=== PATIENT | male | born 1980 | race African-American/Black ===

== ENCOUNTER 2018-10-20 10:15 | Emergency (ER) | payer MEDICAID, OTHER ==
[2018-10-20] MEDS ORDERED: Ondansetron ODT TAB* 4 MG PO ONE (10:36)
--- NOTE | 2018-10-20 10:36 | UC ---
Abdominal Pain Male HPI - HPI Summary HPI Summary: Onset of repeated episodes of vomiting at around 6 am, with 2 episodes of loose stool. Presents with complaint of pain from his lower chest to his mid abdomen, and cannot describe the pain. Was well last evening, ate sausage and had 1-2 beers, nothing suspicious of food borne illness. Awoke with sweating in the night. Denies any previous hx of similar illness, denies hx of sickle cell. Last used marijuana 2 days ago, denies any use of narcotics. - History of Current Complaint Chief Complaint: UCAbdominalPain Stated Complaint: VOMITTING,RESTLESS,CHILLS,NAUSEA Time Seen by Provider: 10/20/18 10:28 Hx Obtained From: Patient, Family/[place] Chief - here with his girlfriend. Onset/Duration: Sudden Onset, Lasting Hours - 5 Timing: Constant Severity Initially: Severe Severity Currently: Severe Pain Intensity: 10 Location: Diffuse Radiates: No Character: Cramping, Sharp Aggravating Factor(s): Movement Alleviating Factor(s): Nothing Associated Signs And Symptoms: Positive: Vomiting, Diarrhea. Negative: Fever, Chest Pain, Constipation, Blood in Stool, Urinary Symptoms - Allergies/Home Medications Allergies/Adverse Reactions: Allergies Allergy/AdvReac Type Severity Reaction Status Date / Time No Known Allergies Allergy Verified 10/20/18 10:20 Home Medications: Home Medications NK [No Home Medications Reported] 10/20/18 [History Confirmed 10/20/18] PMH/Surg Hx/FS Hx/Imm Hx Previously Healthy: Yes - Surgical History Surgical History: None - Family History Known Family History: Positive: Unknown - Social History Occupation: Employed Full-time - [employer] Lives: With Family Alcohol Use: Weekly Substance Use Type: None Smoking Status (MU): Never Smoked Tobacco Review of Systems All Other Systems Reviewed And Are Negative: Yes Constitutional: Positive: Negative Skin: Positive: Negative Eyes: Positive: Negative ENT: Positive: Negative Respiratory: Negative: Shortness Of Breath, Cough Cardiovascular: Negative: Chest Pain Gastrointestinal: Positive: Abdominal Pain, Vomiting, Diarrhea, Nausea Neurovascular: Positive: Negative Musculoskeletal: Positive: Negative. Negative: Arthralgia Neurological: Negative: Headache, Weakness Psychological: Positive: Anxious Physical Exam Triage Information Reviewed: Yes Completion Of Physical Exam Limited Due To: Patient is uncooperative with exam - Often warding off evaluation with his hands, has difficulty lying flat for evaluation. Appearance: Well-Nourished, Ill-Appearing, Pain Distress - moderate. Vital Signs: Initial Vital Signs Temp 96.2 F 10/20/18 10:21 Pulse 60 10/20/18 10:21 Resp 20 10/20/18 10:21 BP 135/76 10/20/18 10:21 Pulse Ox 100 10/20/18 10:21 Eyes: Positive: Conjunctiva Clear ENT: Positive: Pharynx normal Neck: Positive: Supple, Nontender, No Lymphadenopathy Respiratory: Positive: Lungs clear, Normal breath sounds Cardiovascular: Positive: RRR, No Murmur Abdomen Description: Positive: Soft, Guarding - throughouth. Negative: CVA Tenderness (R), CVA Tenderness (L), Distended, Hepatomegaly, McBurney's Point Tenderness, Peritoneal Signs Bowel Sounds: Positive: Present, Other: - Initially bowel sounds subdued, improved after 15 to 30 minutes. Musculoskeletal: Positive: Strength Intact, ROM Intact Neurological: Positive: Alert, Muscle Tone Normal Psychological Exam: Other - Poor eye contact, difficulty engaging his cooperation and he gives limited historical information. Skin Exam: Normal Diagnostics - EKG Cardiac Rate: NL Cardiac Rhythm: Sinus: Normal Ectopy: None ST Segment: Non-Specific EKG Comparison: Other - first degree av block Re-Evaluation - Re-Evaluation First Eval Re-Evaluation Time: 12:40 - no decrease in pain with toradol Change: Unchanged Second Eval Re-Evaluation Time: 13:20 - complaint of flutterring in chest. EKG with sinus rhythm. Change: Unchanged Comment: Advised transfer to hospital, declined ambulance, signed out AMA Abd Pain Male Course/Dx - Course Course Of Treatment: Given iv fluids, zofran with relief of nausea, toradol followed by morphine. CT of the abdomen without contrast is negative. - Differential Dx/Clinical Impression Differential Diagnosis/HQI/PQRI: Appendicitis, Pancreatitis, Renal Colic, Other - gastroenteritis. Provider Diagnosis: Abdominal pain, Palpitations Discharge - Sign-Out/Discharge Documenting (check all that apply): Patient Departure All imaging exams completed and their final reports reviewed: Yes - Discharge Plan Condition: Guarded Disposition: AGAINST MEDICAL ADVICE Patient Education Materials: Acute Abdominal Pain (ED) Referrals: No Primary Care Phys,NOPCP [Primary Care Provider] - Additional Instructions: You have declined ambulance transfer. Please proceed directly to the emergency room for evaluation. - Billing Disposition and Condition Condition: GUARDED Disposition: Against Medical Advice
[2018-10-20] MEDS ORDERED: NS 0.9% 1000 ML** 1,000 ML IV ONE (10:37)
[2018-10-20] MEDS ORDERED: Ketorolac INJ* 30 MG/ML 1 ML VIAL IV ONE (11:39)
[2018-10-20] MEDS ORDERED: Morphine PF AMP (1 MG/ML)* 10 MG/10 ML AMP IV ONE (12:11)
[2018-10-20] MEDS ORDERED: Morphine 10 MG/ML VIAL (1 ml) IV ONE (12:21)
[2018-10-20] MEDS ORDERED: NS 0.9% 500 ML* 500 ML IV ONE (12:35)
[2018-10-20 13:22] VITALS: BP 124/89
== END 2018-10-20 13:40 | disposition left against medical advice (07) ==
LOC: UCCORT 10:15
DX: R10.9 Unspecified abdominal pain (principal); R00.2 Palpitations
CPT/HCPCS: 74176; 93005; 96361; 96374; 96375; 99212; A9270-GY; G0463; J1885; J2270; J2274

== ENCOUNTER 2019-02-01 13:28 | Emergency (ER) | payer MEDICAID, OTHER ==
--- NOTE | 2019-02-01 14:03 | ED ---
Upper Extremity Pain - HPI Summary HPI Summary: Patient is a 38 y/o M presenting to the ED for a chief complaint of right hand pain and swelling. Patient states he injured the right hand a few weeks ago while boxing. He took ibuprofen with some relief to the swelling and applied ice to the right hand. He denies any aggravating factors. Patient admits some decreased ROM of the right hand. He denies having an x-ray of the hand. Patient denies any other pain, fever, or headache. Patient denies any PMHx, PSHx, or medications. Patient admits marijuana use, but denies tobacco or alcohol use. Medications reviewed. Allergies noted. - History of Current Complaint Chief Complaint: EDExtremityUpper Stated Complaint: SWOLLEN RT HAND PER PT Time Seen by Provider: 02/01/19 13:55 Hx Obtained From: Patient Mechanism Of Injury: Direct Blow Onset/Duration: Started Weeks Ago, Traumatic, Still Present Timing: Constant, Lasting Weeks Severity Initially: Moderate Severity Currently: Moderate Pain Location: Hand - Right Aggravating Factor(s): Nothing Alleviating Factor(s): OTC Meds - Ibuprofen Associated Signs & Symptoms: Positive: Swelling - Right hand, Other - Positive decreased ROM of right hand. Negative: Fever - Allergies/Home Medications Allergies/Adverse Reactions: Allergies Allergy/AdvReac Type Severity Reaction Status Date / Time No Known Allergies Allergy Verified 02/01/19 13:34 PMH/Surg Hx/FS Hx/Imm Hx Previously Healthy: Yes Endocrine/Hematology History: Denies: Hx Diabetes Cardiovascular History: Denies: Hx Hypercholesterolemia, Hx Hypertension Sensory History: Denies: Hx Legally Blind, Hx Deafness Opthamlomology History: Denies: Hx Legally Blind EENT History: Denies: Hx Deafness - Surgical History Surgical History: None Surgery Procedure, Year, and Place: None Infectious Disease History: No Infectious Disease History: Denies: Traveled Outside the [place] in Last 30 Days - Family History Known Family History: Negative: Cardiac Disease - Social History Occupation: Unemployed Lives: With Family Alcohol Use: Weekly Hx Substance Use: Yes Substance Use Type: Reports: Marijuana Hx Tobacco Use: No Smoking Status (MU): Never Smoked Tobacco Review of Systems Negative: Fever Positive: Myalgia - Right hand, Decreased ROM - Right hand, Edema - Right hand Negative: Headache All Other Systems Reviewed And Are Negative: Yes Physical Exam - Summary Physical Exam Summary: Constitutional: Well-developed, Well-nourished, Alert. (-) Distressed Skin: Warm, Dry HENT: Normocephalic; Atraumatic Eyes: Conjunctiva normal Neck: Musculoskeletal ROM normal neck. (-) JVD, (-) Stridor, (-) Tracheal deviation Cardio: Rhythm regular, rate normal, Heart sounds normal; Intact distal pulses; Radial pulses are 2+ and symmetric. (-) Murmur Pulmonary/Chest wall: Effort normal. (-) Respiratory distress, (-) Wheezes, (-) Rales Abd: Soft, (-) tenderness, (-) Distension, (-) Guarding, (-) Rebound Musculoskeletal: (-) Edema. Unable to hyperextend the pinky, no bony tenderness , no obvious deformity. Lymph: (-) Cervical adenopathy Neuro: Alert, Oriented x3 Psych: Mood and affect Normal Triage Information Reviewed: Yes Vital Signs On Initial Exam: Initial Vitals Temp Pulse Resp BP Pulse Ox 97.6 F 66 16 107/66 100 02/01/19 13:29 02/01/19 13:29 02/01/19 13:29 02/01/19 13:29 02/01/19 13:29 Vital Signs Reviewed: Yes Procedures - Sedation Patient Received Moderate/Deep Sedation with Procedure: No - Splinting Right Upper Extremity Location: Right ulnar gutter Hand-Made Type: fiberglass Splint: ulnar Pre-Proc Neuro Vasc Exam: normal Post-Proc Neuro Vasc Exam: normal Diagnostics - Vital Signs Vital Signs Temp Pulse Resp BP Pulse Ox 02/01/19 13:29 97.6 F 66 16 107/66 100 - Laboratory Lab Statement: Any lab studies that have been ordered have been reviewed, and results considered in the medical decision making process. - Radiology Hand X-ray Radiology Interpretation Completed By: Radiologist Summary of Radiographic Findings: Hand X-ray IMPRESSION: Comminuted fracture of the fifth metatarsal head with likely periosteal reaction. Reviewed by Dr. Devine. Course/Dx - Course Course Of Treatment: Patient is here with a old fracture through his MCP joint on his fifth finger. Patient's accident occurred a couple weeks ago. Patient is placed in an ulnar gutter splint and given hand follow-up. - Diagnoses Provider Diagnoses: Fracture of metacarpal of right hand, closed Discharge ED - Sign-Out/Discharge Documenting (check all that apply): Patient Departure - Discharge - Discharge Plan Condition: Stable Disposition: HOME Patient Education Materials: Hand Fracture (ED) Referrals: [facility] [Outside] Edgard Patterson MD [Medical Doctor] - Additional Instructions: Wear your splint at all times until cleared by an orthopedic surgeon. Do not get the splint wet or take the splint off. Take ibuprofen and Tylenol for pain. Call a hand surgeon today to make an appointment as soon as possible. PLEASE RETURN TO EMERGENCY DEPARTMENT FOR ANY NEW OR WORSENING SYMPTOMS. Please follow up with your primary care physician. Please make all follow-ups in 1-3 days unless I advise you otherwise. - Billing Disposition and Condition Condition: STABLE Disposition: Home - Attestation Statements Document Initiated by Amadou: Yes Documenting Scribe: Eleanor Gamez Provider For Whom Amadou is Documenting (Include Credential): David Devine MD Scribe Attestation: I, Eleanor Gamez, scribed for David Devine MD on 02/01/19 at 1659. Scribe Documentation Reviewed: Yes Provider Attestation: The documentation as recorded by the Eleanor hernandez accurately reflects the service I personally performed and the decisions made by me, David Devine MD Status of Scribe Document: Viewed
[2019-02-01 15:20] VITALS: BP 105/63
== END 2019-02-01 15:19 | disposition home or self-care (01) ==
LOC: ED 13:28
DX: S62.306A Unspecified fracture of fifth metacarpal bone, right hand, initial encounter for closed fracture (principal); W22.8XXA Striking against or struck by other objects, initial encounter; Y93.71 Activity, boxing; Y92.9 Unspecified place or not applicable
CPT/HCPCS: 99282